=== PATIENT | male | born 1955 | race Caucasian/White ===

== ENCOUNTER 2016-05-01 09:48 | Emergency (ER) | payer SELFPAY ==
[2016-05-01] MEDS ORDERED: SODIUM CHLORIDE 0.9% 1,000 ML IV STA (09:55)
--- NOTE | 2016-05-01 10:18 | ED ---
General Adult HPI - General Chief complaint: Seizure Stated complaint: seizure Time Seen by Provider: 05/01/16 09:50 Source: patient, EMS, RN notes reviewed, old records reviewed Mode of arrival: EMS - History of Present Illness Initial comments: This this is a 6-year-old male who ER for evaluation of shortness of breath, severe shortness of breath with cough congestion dry nose. No fevers mild chest pain. Worse when he is doing activity. Symptoms on and off for a few days. Patient has severe history of COPD, significant heart history. Hospital admission was over a year ago. No travel history no known sick contacts. Patient is doing his breathing treatments at home every few hours and continue to smoke. - Related Data Home Medications Medication Instructions Recorded Confirmed Cefadroxil [Cefadroxil] 500 mg PO QAM 05/01/16 05/01/16 Lisinopril-Hctz 20-12.5 mg 1 tab PO DAILY 05/01/16 05/01/16 [Zestoretic 20-12.5] Simvastatin [Zocor] 20 mg PO QAM 05/01/16 05/01/16 Allergies Allergy/AdvReac Type Severity Reaction Status Date / Time No Known Allergies Allergy Verified 05/01/16 10:08 Review of Systems ROS Statement: Those systems with pertinent positive or pertinent negative responses have been documented in the HPI. ROS Other: All systems not noted in ROS Statement are negative. Past Medical History Past Medical History: Hyperlipidemia, Hypertension History of Any Multi-Drug Resistant Organisms: None Reported Past Surgical History: Coronary Bypass/CABG Additional Past Surgical History / Comment(s): Knee surgery bilaterally. Titanium plate in the right hip Past Psychological History: No Psychological Hx Reported Smoking Status: Former smoker General Exam General appearance: alert, in no apparent distress, anxious Head exam: Present: atraumatic, normocephalic, normal inspection Eye exam: Present: normal appearance, PERRL, EOMI. Absent: scleral icterus, conjunctival injection, periorbital swelling ENT exam: Present: normal exam, mucous membranes moist Neck exam: Present: normal inspection. Absent: tenderness, meningismus, lymphadenopathy Respiratory exam: Present: wheezes, decreased breath sounds, prolonged expiratory. Absent: respiratory distress, rales, rhonchi, stridor Cardiovascular Exam: Present: regular rate, normal rhythm, normal heart sounds. Absent: systolic murmur, diastolic murmur, rubs, gallop, clicks GI/Abdominal exam: Present: soft, normal bowel sounds. Absent: distended, tenderness, guarding, rebound, rigid Extremities exam: Present: normal inspection, full ROM, normal capillary refill. Absent: tenderness, pedal edema, joint swelling, calf tenderness Back exam: Present: normal inspection Neurological exam: Present: alert, oriented X3, CN II-XII intact Psychiatric exam: Present: normal affect, normal mood Skin exam: Present: warm, dry, intact, normal color. Absent: rash Course Vital Signs 05/01/16 05/01/16 09:51 11:49 Temperature 96.8 F L 97.9 F Pulse Rate 94 76 Respiratory 15 16 Rate Blood Pressure 134/73 120/78 O2 Sat by Pulse 94 L 98 Oximetry - Reevaluation(s) Reevaluation #1: Patient is without seizure in the emergency room, bystanders and friends were at bedside now state patient does have history of having low blood sugar EKG Findings - EKG Comments: EKG Findings:: EKG shows normal sinus rhythm rate of 84, IN 186, QRS 114, QTc 465 Medical Decision Making - Medical Decision Making 6 emailed the ER with seizure, new onset seizure today while shopping. Patient sates he was 100 felt lightheaded and dizzy, patient has history of hypoglycemia. Otherwise CT is negative, patient denies drugs or alcohol abuse. Laboratories normal patient may be discharged - Lab Data Result diagrams: 05/01/16 10:20 05/01/16 10:20 Lab Results 05/01/16 05/01/16 Range/Units 10:20 10:20 WBC 7.9 (3.8-10.6) k/uL RBC 5.11 (4.30-5.90) m/uL Hgb 15.8 (13.0-17.5) gm/dL Hct 46.1 (39.0-53.0) % MCV 90.2 (80.0-100.0) fL MCH 31.0 (25.0-35.0) pg MCHC 34.4 (31.0-37.0) g/dL RDW 13.3 (11.5-15.5) % Plt Count 164 (150-450) k/uL Neutrophils % 75 % Lymphocytes % 15 % Monocytes % 5 % Eosinophils % 2 % Basophils % 1 % Neutrophils # 5.9 (1.3-7.7) k/uL Lymphocytes # 1.2 (1.0-4.8) k/uL Monocytes # 0.4 (0-1.0) k/uL Eosinophils # 0.2 (0-0.7) k/uL Basophils # 0.1 (0-0.2) k/uL Sodium 142 (137-145) mmol/L Potassium 4.6 (3.5-5.1) mmol/L Chloride 104 (98-107) mmol/L Carbon Dioxide 26 (22-30) mmol/L Anion Gap 12 mmol/L BUN 17 (9-20) mg/dL Creatinine 1.02 (0.66-1.25) mg/dL Est GFR (MDRD) Af Amer >60 (>60 ml/min/1.73 sqM) Est GFR (MDRD) Non-Af >60 (>60 ml/min/1.73 sqM) Glucose 79 (74-99) mg/dL Calcium 9.1 (8.4-10.2) mg/dL Phosphorus 2.1 L (2.5-4.5) mg/dL Magnesium 2.1 (1.6-2.3) mg/dL Total Bilirubin 0.7 (0.2-1.3) mg/dL AST 21 (17-59) U/L ALT 25 (21-72) U/L Alkaline Phosphatase 60 (38-126) U/L Total Protein 7.2 (6.3-8.2) g/dL Albumin 4.2 (3.5-5.0) g/dL Salicylates <1.0 mg/dL Acetaminophen <10.0 ug/mL Serum Alcohol <10 mg/dL - Radiology Data Radiology results: report reviewed (CT brain negative for acute disease), image reviewed Disposition Clinical Impression: New onset seizure Disposition: HOME SELF-CARE Condition: Good Instructions: New-Onset Seizure in Adults (ED) Referrals: Hong Delgado DO [Primary Care Provider] - 1-2 days Titus Robles MD [STAFF PHYSICIAN] - 1-2 days
[2016-05-01 10:44] LABS: Basophils # (A) 0.1 k/uL (0-0.2); Basophils % (A) 1 %; CH 31.8; CHCM 35.5; Eosinophils # (A) 0.2 k/uL (0-0.7); Eosinophils % (A) 2 %; HCT 46.1 % (39.0-53.0); HDW 2.98; HGB 15.8 gm/dL (13.0-17.5); Luc # (Auto) 0.14; Luc % (Auto) 2; Lymphocytes # (A) 1.2 k/uL (1.0-4.8); Lymphocytes % (A) 15 %; MCHC 34.4 g/dL (31.0-37.0); MCV 90.2 fL (80.0-100.0); Mean Platelet Volume 8.4; Monocytes # (A) 0.4 k/uL (0-1.0); Monocytes % (A) 5 %; Neutrophils # (A) 5.9 k/uL (1.3-7.7); Neutrophils % (A) 75 %; RBC 5.11 m/uL (4.30-5.90); RDW 13.3 % (11.5-15.5); WBC 7.9 k/uL (3.8-10.6); WBC (Perox) 7.75
--- NOTE | 2016-05-01 11:04 | CT ---
EXAMINATION TYPE: CT brain wo con DATE OF EXAM: 05/01/2016 10:37 AM COMPARISON: NONE HISTORY: syncope, possible seizure CT DLP: 1108.4 mGycm Automated exposure control for dose reduction was used. FINDINGS: There is no acute intracranial hemorrhage, mass effect, or midline shift identified. The ventricles and sulci are within normal limits in size. Mild cortical atrophy is likely age-related. Cerebral va scular calcifications are noted incidentally, periventricular white matter demyelination is likely du e to chronic small vessel ischemia The globes are intact and the visualized sinuses are remarkable fo r air-fluid level in the left maxillary sinus, inflammatory change less significant in the right maxi llary sinus, ethmoid air cells. IMPRESSION: No acute intracranial hemorrhage, mass effect, or midline shift is seen. Correlate for left maxillary sinusitis. Age-related atrophy and probable chronic small vessel ischemia.
[2016-05-01 11:08] LABS: ALT 25 U/L (21-72); AST 21 U/L (17-59); Acetaminophen <10.0 ug/mL; Alcohol <10 mg/dL; Alkaline Phosphatase 60 U/L (38-126); Anion Gap 12 mmol/L; Blood Urea Nitrogen 17 mg/dL (9-20); Calcium 9.1 mg/dL (8.4-10.2); Carbon Dioxide 26 mmol/L (22-30); Chloride 104 mmol/L (98-107); Glucose 79 mg/dL (74-99); Magnesium 2.1 mg/dL (1.6-2.3); Non-African American GFR(MDRD) >60 (>60 ml/min/1.73 sqM); Phosphorous 2.1 mg/dL (2.5-4.5); Potassium 4.6 mmol/L (3.5-5.1); Salicylate <1.0 mg/dL; Sodium 142 mmol/L (137-145); Total Bilirubin 0.7 mg/dL (0.2-1.3); Total Protein 7.2 g/dL (6.3-8.2)
[2016-05-01 11:50] VITALS: BP 120/78; PULSE 76; RESP 16; TEMP 97.9
== END 2016-05-01 11:50 | disposition home or self-care (01) ==
LOC: EC 09:48
DX: R56.9 Unspecified convulsions (principal); R06.2 Wheezing; R42 Dizziness and giddiness; R06.02 Shortness of breath; R05 Cough; R09.89 Other specified symptoms and signs involving the circulatory and respiratory systems; J34.89 Other specified disorders of nose and nasal sinuses; R07.9 Chest pain, unspecified; I10 Essential (primary) hypertension; E78.5 Hyperlipidemia, unspecified; Z87.891 Personal history of nicotine dependence; Z79.899 Other long term (current) drug therapy; Z86.39 Personal history of other endocrine, nutritional and metabolic disease
CPT/HCPCS: 36415; 70450; 80053; 80320; 83520; 83735; 84100; 85025; 93005; 96360; 99285